=== PATIENT | female | born 1995 | race Native Hawaiian/Other Pacific Islander ===

== ENCOUNTER 2017-02-22 00:17 | Emergency (ER) | payer BC, OTHER ==
[2017-02-22 00:24] VITALS: TEMP 98.9; O2SAT 99
[2017-02-22 00:26] VITALS: BMI 36.4
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
[2017-02-22 03:25] VITALS: BP 146/80; PULSE 97; RESP 17
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
== END 2017-02-22 03:24 | disposition home or self-care (01) ==
LOC: ED 00:17
DX: S01.81XA Laceration without foreign body of other part of head, initial encounter (principal); S01.01XA Laceration without foreign body of scalp, initial encounter; S62.653A Nondisplaced fracture of middle phalanx of left middle finger, initial encounter for closed fracture; Y00.XXXA Assault by blunt object, initial encounter; Y93.89 Activity, other specified; Y92.89 Other specified places as the place of occurrence of the external cause